=== PATIENT | female | born 1985 | race Caucasian/White ===

== ENCOUNTER 2018-06-19 11:56 | Emergency (ER) | payer BC ==
[2018-06-19] MEDS ORDERED: Acetaminophen/oxyCODONE 325-5 MG Tab PO ONE (12:29)
--- NOTE | 2018-06-19 12:35 | EDM.PDOC ---
ED HPI GENERAL MEDICAL PROBLEM - General Chief Complaint: Back Pain or Injury Stated Complaint: FELL AND HIT RIBS Time Seen by Provider: 06/19/18 12:25 Source of Information: Reports: Patient, Old Records, RN History Limitations: Reports: No Limitations - History of Present Illness INITIAL COMMENTS - FREE TEXT/NARRATIVE: 32 yo female here with R flank pain after a fall onto a hard surface late this morning. Has localized swelling and pain with breathing, no SOB. No gross hematuria. Onset: Today Onset Date: 06/19/18 Onset Time: 10:00 Duration: Hour(s): (2.5), Constant Location: Reports: Chest Quality: Reports: Sharp Severity: Moderate Improves with: Reports: Rest Worsens with: Reports: Movement Context: Reports: Trauma Associated Symptoms: Reports: No Other Symptoms. Denies: Shortness of Breath Treatments SUPERINTENDENT TERMINAL: Reports: Other (see below) (none) Right Chest Pain Score (Numeric/FACES): 6 - Related Data Allergies Allergy/AdvReac Type Severity Reaction Status Date / Time acetaminophen [From Lortab] Allergy Chest Verified 10/04/17 18:46 Tightness bupropion [From Wellbutrin] Allergy Vomiting Verified 10/04/17 18:48 codeine Allergy Chest Verified 10/04/17 18:46 Tightness hydrocodone bitartrate Allergy Chest Verified 10/04/17 18:46 [From Lortab] Tightness hydromorphone HCl Allergy Chest Verified 10/04/17 18:46 [From Dilaudid] Tightness ketorolac [From Toradol] Allergy Headache Verified 10/04/17 18:48 latex Allergy Rash Verified 10/04/17 18:46 nifedipine [From Procardia] Allergy Chest Verified 10/04/17 18:48 Presssure Home Meds: Home Meds Calcium Carbonate [Calcium] 500 mg PO DAILY 04/20/13 [History] Vitamin B Complex 1 each PO DAILY 04/20/13 [History] Zolpidem Tartrate 5 mg PO ASDIRECTED 06/19/18 [History] 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 Denies: Shortness of Breath, Wheezing, Cough, Sputum, Hemoptysis Cardiovascular: Reports: No Symptoms Musculoskeletal: Reports: Other (Rib pain R flank area.) Skin: Reports: No Symptoms, Other (local swelling R flank.) Neurological: Reports: No Symptoms ED EXAM, UPPER BACK/NECK PAIN - Physical Exam Exam: See Below Exam Limited By: No Limitations General Appearance: Alert, WD/WN, No Apparent Distress Neck Exam: Non-Tender Cardiovascular/Respiratory: Regular Rate, Rhythm, Normal Breath Sounds, No Respiratory Distress, Other (Rib pain R flank area. ) Back Exam: Other (local swelling R flank) Extremities: Normal Inspection, Normal Range of Motion, Non-Tender, No Pedal Edema Neurologic: client solutions specialist II-XII nml As Tested, No Motor/Sensory Deficits, Alert, Normal Mood/Affect, Oriented x 3 Psychiatric: Normal Affect, Normal Mood Skin Exam: Normal Color, Warm/Dry Lymphatic: No Adenopathy Course - Vital Signs Last Recorded V/S: Last Vital Signs Temp 35.8 C 06/19/18 12:22 Pulse 102 H 06/19/18 12:22 Resp 16 06/19/18 12:22 BP 115/81 06/19/18 12:22 Pulse Ox 98 06/19/18 12:22 - Orders/Labs/Meds Labs: Laboratory Tests 06/19/18 Range/Units 12:38 Urine Color Yellow Urine Appearance Slightly cloudy Urine pH 5.0 (4.5-8.0) Ur Specific [place] 1.020 (1.008-1.030) Urine Protein 30 H (NEGATIVE) mg/dL Urine Glucose (UA) Normal (NEGATIVE) mg/dL Urine Ketones Negative (NEGATIVE) mg/dL Urine Occult Blood Negative (NEGATIVE) Urine Nitrite Negative (NEGATIVE) Urine Bilirubin Negative (NEGATIVE) Urine Urobilinogen Normal (NORMAL) mg/dL Ur Leukocyte Esterase Negative (NEGATIVE) Urine RBC Not seen (0-5) Urine WBC 0-5 (0-5) Ur Epithelial Cells Moderate Amorphous Sediment Not seen Urine Bacteria Moderate Urine Mucus Many Meds: Medications Discontinued Medications Generic Name Dose Route Start Last Admin Trade Name Freq PRN Reason Stop Dose Admin Oxycodone/Acetaminophen 1 tab 06/19/18 12:29 06/19/18 12:33 Percocet 325-5 Mg PO 06/19/18 12:30 1 tab ONETIME ONE Administration - Radiology Interpretation Free Text/Narrative:: CXR-neg Departure - Departure Time of Disposition: 13:27 Disposition: Home, Self-Care 01 Condition: Fair Clinical Impression: Rib pain on right side - Discharge Information *PRESCRIPTION DRUG MONITORING PROGRAM REVIEWED*: No *COPY OF PRESCRIPTION DRUG MONITORING REPORT IN PATIENT DEE: No Instructions: Chest Wall Pain, [id number] Referrals: Zoila Mendes MD [Primary Care Provider] - Forms: ED Department Discharge Additional Instructions: Take acetaminophen OR Lorimor for pain relief as needed. F/U with your doctor as needed. Activity as tolerated.
--- NOTE | 2018-06-19 13:24 | CRLCR ---
Indication: Chest wall pain after fall Technique: Five views of the ribs. Findings: No pneumothorax or hemothorax. No displaced rib fracture. Normal heart and mediastinum. Visualized lungs are clear. Impression: 1. No displaced rib fracture. 2. No pneumothorax or hemothorax. Dictated by Donta Buckley MD @ Jun 19 2018 1:20PM Signed by Dr. Donta Buckley @ Jun 19 2018 1:22PM
== END 2018-06-19 13:48 | disposition home or self-care (01) ==
LOC: JP.ED 11:56
DX: R07.81 Pleurodynia (principal); F41.9 Anxiety disorder, unspecified; F32.9 Major depressive disorder, single episode, unspecified; Z88.8 Allergy status to other drugs, medicaments and biological substances; Z88.5 Allergy status to narcotic agent; Z91.040 Latex allergy status; Z79.899 Other long term (current) drug therapy
CPT/HCPCS: 71101; 81001; 99284; A9270

== ENCOUNTER 2018-07-29 08:00 | Emergency (ER) | payer BC ==
[2018-07-29] MEDS ORDERED: Ketorolac 60 MG/2 ML SDV IM ONE (08:29)
[2018-07-29] MEDS ORDERED: Cyclobenzaprine 10 MG Tab PO ONE (08:29)
--- NOTE | 2018-07-29 08:32 | EDM.PDOC ---
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 no loss of bowel or bladder no numbness and tingling in the feet Lower Back Pain Score (Numeric/FACES): 8 - Related Data Allergies Allergy/AdvReac Type Severity Reaction Status Date / Time bupropion [From Wellbutrin] Allergy Vomiting Verified 07/29/18 08:16 codeine Allergy Chest Verified 07/29/18 08:16 Tightness hydromorphone HCl Allergy Chest Verified 07/29/18 08:16 [From Dilaudid] Tightness latex Allergy Rash Verified 07/29/18 08:16 nifedipine [From Procardia] Allergy Chest Verified 07/29/18 08:16 Presssure ketorolac [From Toradol] AdvReac Stomach Verified 07/29/18 08:30 Upset Home Meds: Home Meds Calcium Carbonate [Calcium] 500 mg PO DAILY 04/20/13 [History] Vitamin B Complex 1 each PO DAILY 04/20/13 [History] Zolpidem Tartrate 5 mg PO ASDIRECTED 06/19/18 [History] Cyclobenzaprine [Flexeril] 10 mg PO TID PRN #30 tab 07/29/18 [Rx] Hydrocodone/Acetaminophen [Hydrocodon-Acetaminophen 5-325] 1 each PO TID PRN # 10 tablet 07/29/18 [Rx] 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: Musculoskeletal History: Reports: Back Pain, Chronic Other Musculoskeletal History: back fusion Psychiatric History: Reports: Anxiety, Depression - Past Surgical History GI Surgical History: Reports: Bariatric Procedure Neurological Surgical History: Reports: Spinal Fusion Other Neurological Surgeries/Procedures: L-5-s-1 Social & Family History - Family History Family Medical History: Noncontributory - Tobacco Use Smoking Status *Q: Former Smoker Used Tobacco, but Quit: Yes Month/Year Tobacco Last Used: 2010 - Caffeine Use Caffeine Use: Reports: Coffee, Soda, Tea - Recreational Drug Use Recreational Drug Use: No ED ROS GENERAL - Review of Systems Review Of Systems: See Below Musculoskeletal: Reports: Back Pain Neurological: Reports: No Symptoms ED EXAM,LOWER BACK PAIN/INJURY - Physical Exam Exam: See Below Exam Limited By: No Limitations General Appearance: Alert, Mild Distress Respiratory/Chest: No Respiratory Distress Back Exam: Normal Inspection, Decreased Range of Motion, Muscle Spasm, Paraspinal Tenderness. No: CVA Tenderness (R), CVA Tenderness (L), Vertebral Tenderness Extremities: Normal Inspection, Normal Range of Motion, No Pedal Edema Neurological: No: Straight Leg Raise (L), Straight Leg Raise (R) Course - Vital Signs Last Recorded V/S: Last Vital Signs Temp 98.7 F 07/29/18 08:11 Pulse 118 H 07/29/18 09:14 Resp 16 07/29/18 09:14 BP 149/95 H 07/29/18 09:14 Pulse Ox 97 07/29/18 09:14 - Orders/Labs/Meds Meds: Medications Discontinued Medications Generic Name Dose Route Start Last Admin Trade Name Freq PRN Reason Stop Dose Admin Cyclobenzaprine HCl 10 mg 07/29/18 08:29 07/29/18 08:44 Flexeril PO 07/29/18 08:30 10 mg ONETIME ONE Administration Fentanyl 50 mcg 07/29/18 09:45 07/29/18 09:55 Sublimaze IM 07/29/18 09:46 50 mcg ONETIME ONE Administration Ketorolac Tromethamine 60 mg 07/29/18 08:29 07/29/18 08:44 Toradol IM 07/29/18 08:30 60 mg ONETIME ONE Administration Departure - Departure Time of Disposition: 10:29 Disposition: Home, Self-Care 01 Condition: Fair Clinical Impression: Low back pain Qualifiers: Chronicity: acute Back pain laterality: right Sciatica presence: without sciatica Qualified Code(s): M54.5 - Low back pain - Discharge Information Prescriptions: Cyclobenzaprine [Flexeril] 10 mg PO TID PRN #30 tab PRN Reason: Pain Hydrocodone/Acetaminophen [Hydrocodon-Acetaminophen 5-325] 1 each PO TID PRN # 10 tablet PRN Reason: Pain Instructions: Acute Back Pain, Adult Referrals: Zoila Mendes MD [Primary Care Provider] - Forms: ED Department Discharge, ED Return to Work/School Form Additional Instructions: Use Tylenol as needed for pain control, use hydrocodone as needed for breakthrough pain, use Flexeril as needed for muscle relaxant, Please followup with your primary care provider in 3-5 days if not better, please call return to the emergency department with worsening of symptoms. Your medications have been faxed to [facility] - Assessment/Plan Plan: Assessment Acuity = acute Site and laterality = low back pain Etiology = secondary lifting injury Manifestations = none Location of injury = Home Lab values = none Plan She good relief combination Toradol and Flexeril with 50 mics of fentanyl in the emergency Department discharge home with Flexeril 10 mg by mouth 3 times a day when necessary total #30 also hydrocodone 5/325 one tab by mouth 3 times a day when necessary total #10 medications faxed to [facility] follow -up primary care 3-5 days if no improvement This note was dictated using [employer] voice recognition software please call with any questions on syntax or grammar.
[2018-07-29] MEDS ORDERED: fentaNYL 100 MCG/2 ML SDV IM ONE (09:45)
== END 2018-07-29 10:46 | disposition home or self-care (01) ==
LOC: JP.ED 08:00
DX: M54.5 Low back pain (principal); F41.9 Anxiety disorder, unspecified; F32.9 Major depressive disorder, single episode, unspecified; Z87.891 Personal history of nicotine dependence; Z88.5 Allergy status to narcotic agent; Z88.8 Allergy status to other drugs, medicaments and biological substances; Z91.040 Latex allergy status; Z79.899 Other long term (current) drug therapy
CPT/HCPCS: 96372; 99283; A9270; J1885; J3010

== ENCOUNTER 2018-09-30 07:45 | Inpatient (IN) | payer BC ==
[2018-09-30] MEDS ORDERED: Morphine 2 MG/ML Syringe IVPUSH ONE ×3 (08:11→10:10)
[2018-09-30] MEDS ORDERED: Ondansetron 4 MG/2 ML SDV IVPUSH ONE ×2 (08:11→15:50)
[2018-09-30] MEDS ORDERED: Sodium Chloride 0.9% 1,000 ML IV SCH (08:15)
--- NOTE | 2018-09-30 08:37 | EDM.PDOC ---
ED HPI GENERAL MEDICAL PROBLEM - General Chief Complaint: Abdominal Pain Stated Complaint: SEVERE RT SIDED ABD PAIN Time Seen by Provider: 09/30/18 08:25 Source of Information: Reports: Patient History Limitations: Reports: No Limitations - History of Present Illness INITIAL COMMENTS - FREE TEXT/NARRATIVE: pt has pain in the rt upper abdoman and rt flank area. She has no history of a kidney stone. She has had a bhavik. This pain started about 8 am. Onset: Other (last evening and it did start suddenly. ) Duration: Hour(s): Location: Reports: Abdomen Associated Symptoms: Reports: Loss of Appetite, Nausea/Vomiting, Other (pt had a very large loose stool this am. ) Right Abdominal Pain Score (Numeric/FACES): 8 - Related Data Allergies Allergy/AdvReac Type Severity Reaction Status Date / Time bupropion [From Wellbutrin] Allergy Vomiting Verified 07/29/18 08:16 codeine Allergy Chest Verified 07/29/18 08:16 Tightness hydromorphone HCl Allergy Chest Verified 07/29/18 08:16 [From Dilaudid] Tightness latex Allergy Rash Verified 07/29/18 08:16 nifedipine [From Procardia] Allergy Chest Verified 07/29/18 08:16 Presssure ketorolac [From Toradol] AdvReac Stomach Verified 07/29/18 08:30 Upset Home Meds: Home Meds Calcium Carbonate [Calcium] 500 mg PO DAILY 04/20/13 [History] Vitamin B Complex 1 each PO DAILY 04/20/13 [History] Zolpidem Tartrate 5 mg PO ASDIRECTED 06/19/18 [History] Cyclobenzaprine [Flexeril] 10 mg PO TID PRN #30 tab 07/29/18 [Rx] Hydrocodone/Acetaminophen [Hydrocodon-Acetaminophen 5-325] 1 each PO TID PRN # 10 tablet 07/29/18 [Rx] Past Medical History Gastrointestinal History: Reports: Other (See Below) Other Gastrointestinal History: R sided abd pain for past 24 hours 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 History: Reports: Musculoskeletal History: Reports: Back Pain, Chronic Other Musculoskeletal History: back fusion Psychiatric History: Reports: Anxiety, Depression - Past Surgical History GI Surgical History: Reports: Bariatric Procedure Neurological Surgical History: Reports: Spinal Fusion Other Neurological Surgeries/Procedures: L-5-s-1 Social & Family History - Family History Family Medical History: Noncontributory - Tobacco Use Smoking Status *Q: Never Smoker - Caffeine Use Caffeine Use: Reports: Coffee - Alcohol Use Days Per Week of Alcohol Use: 1 Number of Drinks Per Day: 3 Total Drinks Per Week: 3 - Recreational Drug Use Recreational Drug Use: No ED ROS GENERAL - Review of Systems Review Of Systems: See Below Constitutional: Reports: No Symptoms HEENT: Reports: No Symptoms Respiratory: Reports: No Symptoms Cardiovascular: Reports: No Symptoms Endocrine: Reports: No Symptoms GI/Abdominal: Reports: Abdominal Pain, Diarrhea, Other (pt had one very massive loose stool this am. ) : Reports: No Symptoms Musculoskeletal: Reports: No Symptoms Skin: Reports: No Symptoms ED EXAM, GI/ABD - Physical Exam Exam: See Below Text/Narrative:: pt arrived havin severe rt sided abdomanal pain radiating to her back. She states this started very suddenly at 8 pm last nite. She is having some loose stools. Exam Limited By: No Limitations General Appearance: Alert, Severe Distress, Other (pupils equal and reactive. ) Ears: Normal TMs Nose: Normal Inspection, Nasal Deformity Throat/Mouth: Normal Inspection Head: Atraumatic Neck: Normal Inspection Respiratory/Chest: No Respiratory Distress Cardiovascular: Regular Rate, Rhythm GI/Abdominal Exam: Tender, Other (mid to lower abdoman. ) (Female) Exam: Deferred Rectal (Female) Exam: Deferred Back Exam: Normal Inspection Extremities: Normal Inspection Neurological: Alert, Oriented, Normal Cognition Course - Vital Signs Last Recorded V/S: Last Vital Signs Temp 36.9 C 10/01/18 04:00 Pulse 75 10/01/18 06:00 Resp 17 10/01/18 06:00 BP 138/86 10/01/18 06:00 Pulse Ox 95 10/01/18 06:00 - Orders/Labs/Meds Orders: Active Orders 24 hr Category Date Time Status Lidocaine 0.4%/D5W [Lidocaine 2 GM/D5W 500 ML] Med 09/30/18 15:00 Active 2 gm in 500 ml IV 1 mg/min Morphine PF [Morphine REGIONAL BRANCH MANAGER 150 MG in 30 ML] Med 09/30/18 11:03 Active 0 mg IV ASDIRECTED PRN Naloxone [Narcan] Med 09/30/18 11:03 Active 0.1 mg IV ASDIRECTED PRN Medication Orders Acetaminophen (Tylenol) 650 mg PO Q6H [facility] Last Admin: 10/01/18 01:43 Dose: 650 mg Admin: 09/30/18 20:37 Dose: 650 mg Cyanocobalamin (Vitamin B12) 1,000 mcg IM ONETIME ONE Stop: 10/02/18 09:01 Cyclobenzaprine HCl (Flexeril) 10 mg PO TID PRN PRN Reason: MUSCLE SPASM Diphenhydramine HCl (Benadryl) 50 mg IVPUSH Q4H PRN PRN Reason: ITCHING Heparin Sodium (Porcine) (Heparin Sodium) 5,000 units SUBCUT Q12H [facility] Last Admin: 09/30/18 20:38 Dose: 5,000 units Hydroxyzine HCl (Vistaril) 100 mg IM Q4H PRN PRN Reason: pain Last Admin: 09/30/18 20:38 Dose: 100 mg Lidocaine HCl/Dextrose (Lidocaine 2 Gm/D5w 500 Ml) 2 gm in 500 mls @ 15 mls/hr IV .Q24H [facility] Last Admin: 09/30/18 17:37 Dose: 1 mg/min, 15 mls/hr Dextrose/Lactated Ringer's (Dextrose 5%-Lactated Ringers) 1,000 mls @ 175.004 mls/hr IV ASDIRECTED [facility] Last Admin: 10/01/18 07:08 Dose: 175.004 mls/hr Infusion: 10/01/18 06:13 Dose: 175.004 mls/hr Admin: 10/01/18 00:30 Dose: 175.004 mls/hr Multivitamins/Minerals 10 ml/Thiamine HCl 200 mg/ Chromium/Copper/Manganese/ Seleni/Zn 1 ml/ Dextrose/Lactated Ringer's 1,013 mls @ 174.999 mls/hr IV DAILY@ 1600 [facility] Last Admin: 09/30/18 18:00 Dose: 174.999 mls/hr Cefoxitin Sodium 2 gm/ Sodium (Chloride) 50 mls @ 100 mls/hr IV Q6H [facility] Stop: 10/01/18 08:29 Last Admin: 10/01/18 01:43 Dose: 100 mls/hr Admin: 09/30/18 20:37 Dose: 100 mls/hr Ferric Sodium Gluconate Complex 250 mg/ Sodium Chloride 120 mls @ 60 mls/hr IV Q24H [facility] Stop: 10/02/18 11:59 Labetalol HCl (Normodyne) 5 mg IVPUSH Q5M PRN PRN Reason: SBP over 160 OR DBP over 95 Metoclopramide HCl (Reglan) 10 mg IVPUSH Q6H PRN PRN Reason: NAUSEA NOT CONTROL BY ZOFRAN Last Admin: 09/30/18 17:42 Dose: 10 mg Miscellaneous Information (Remove Patch) 1 ea TRDERM ONETIME ONE Stop: 10/02/18 10:01 Morphine Sulfate (Morphine Geologist Petroleum 150 Mg In 30 Ml) 0 mg IV ASDIRECTED PRN; Protocol PRN Reason: Pain Last Admin: 09/30/18 11:28 Dose: 150 mg Naloxone HCl (Narcan) 0.1 mg IV ASDIRECTED PRN PRN Reason: decreased respiratory rate Scopolamine Patch (Check) 1 each TOP DAILY ISABELA Stop: 10/02/18 17:03 Ondansetron HCl (Zofran) 4 mg IVPUSH Q4H PRN PRN Reason: Nausea/Vomiting Pantoprazole Sodium (Protonix Iv) 40 mg IVPUSH Q24H [facility] Last Admin: 09/30/18 20:38 Dose: 40 mg Labs: Laboratory Tests 09/30/18 09/30/18 09/30/18 Range/Units 08:20 08:20 08:20 WBC 8.4 (4.5-11.0) K/uL RBC 4.54 (3.30-5.50) M/uL Hgb 11.6 L (12.0-15.0) g/dL Hct 37.5 (36.0-48.0) % MCV 83 (80-98) fL MCH 26 L (27-31) pg MCHC 31 L (32-36) % Plt Count 379 (150-400) K/uL Neut % (Auto) 61 (36-66) % Lymph % (Auto) 26 (24-44) % [place] % (Auto) 10 H (2-6) % Eos % (Auto) 3 (2-4) % Baso % (Auto) 0 (0-1) % Sodium 140 (140-148) mmol/L Potassium 4.2 (3.6-5.2) mmol/L Chloride 104 (100-108) mmol/L Carbon Dioxide 28 (21-32) mmol/L Anion Gap 7.6 (5.0-14.0) mmol/L BUN 19 H (7-18) mg/dL Creatinine 0.7 (0.6-1.0) mg/dL Est Cr Clr Drug Dosing TNP Estimated GFR (MDRD) > 60 (>60) Glucose 93 (74-106) mg/dL Calcium 8.4 L (8.5-10.1) mg/dL Total Bilirubin 0.4 (0.2-1.0) mg/dL Ferritin (8-388) ng/ml AST 21 (15-37) U/L ALT 25 (12-78) U/L Alkaline Phosphatase 75 (46-116) U/L C-Reactive Protein 0.07 (0.0-0.3) mg/dL Total Protein 6.5 (6.4-8.2) g/dL Albumin 3.4 (3.4-5.0) g/dL Globulin 3.1 (2.3-3.5) g/dL Albumin/Globulin Ratio 1.1 L (1.2-2.2) Lipase 117 (73-393) U/L Vitamin B12 (193-986) pg/ml Folate (8.6-58.9) ng/ml Urine Color Urine Appearance Urine pH (4.5-8.0) Ur Specific [place] (1.008-1.030) Urine Protein (NEGATIVE) mg/dL Urine Glucose (UA) (NEGATIVE) mg/dL Urine Ketones (NEGATIVE) mg/dL Urine Occult Blood (NEGATIVE) Urine Nitrite (NEGATIVE) Urine Bilirubin (NEGATIVE) Urine Urobilinogen (NORMAL) mg/dL Ur Leukocyte Esterase (NEGATIVE) Urine RBC (0-5) Urine WBC (0-5) Ur Epithelial Cells Amorphous Sediment Urine Bacteria Urine Mucus 09/30/18 09/30/18 09/30/18 Range/Units 08:42 12:30 12:35 WBC (4.5-11.0) K/uL RBC (3.30-5.50) M/uL Hgb (12.0-15.0) g/dL Hct (36.0-48.0) % MCV (80-98) fL MCH (27-31) pg MCHC (32-36) % Plt Count (150-400) K/uL Neut % (Auto) (36-66) % Lymph % (Auto) (24-44) % [place] % (Auto) (2-6) % Eos % (Auto) (2-4) % Baso % (Auto) (0-1) % Sodium (140-148) mmol/L Potassium (3.6-5.2) mmol/L Chloride (100-108) mmol/L Carbon Dioxide (21-32) mmol/L Anion Gap (5.0-14.0) mmol/L BUN (7-18) mg/dL Creatinine (0.6-1.0) mg/dL Est Cr Clr Drug Dosing Estimated GFR (MDRD) (>60) Glucose (74-106) mg/dL Calcium (8.5-10.1) mg/dL Total Bilirubin (0.2-1.0) mg/dL Ferritin 5 L (8-388) ng/ml AST (15-37) U/L ALT (12-78) U/L Alkaline Phosphatase (46-116) U/L C-Reactive Protein (0.0-0.3) mg/dL Total Protein (6.4-8.2) g/dL Albumin (3.4-5.0) g/dL Globulin (2.3-3.5) g/dL Albumin/Globulin Ratio (1.2-2.2) Lipase (73-393) U/L Vitamin B12 1095 H (193-986) pg/ml Folate 24.4 (8.6-58.9) ng/ml Urine Color Yellow Urine Appearance Slightly cloudy Urine pH 7.0 (4.5-8.0) Ur Specific [place] 1.015 (1.008-1.030) Urine Protein Negative (NEGATIVE) mg/dL Urine Glucose (UA) Normal (NEGATIVE) mg/dL Urine Ketones Negative (NEGATIVE) mg/dL Urine Occult Blood Negative (NEGATIVE) Urine Nitrite Negative (NEGATIVE) Urine Bilirubin Moderate (NEGATIVE) Urine Urobilinogen 1 (NORMAL) mg/dL Ur Leukocyte Esterase Trace (NEGATIVE) Urine RBC 0-5 (0-5) Urine WBC 0-5 (0-5) Ur Epithelial Cells Rare Amorphous Sediment Not seen Urine Bacteria Few Urine Mucus Not seen Meds: Medications Generic Name Dose Route Start Last Admin Trade Name Freq PRN Reason Stop Dose Admin Acetaminophen 650 mg 09/30/18 20:00 10/01/18 01:43 Tylenol PO 650 mg Q6H ISABELA Administration Cyanocobalamin 1,000 mcg 10/02/18 09:00 Vitamin B12 IM 10/02/18 09:01 ONETIME ONE Cyclobenzaprine HCl 10 mg 09/30/18 17:08 Flexeril PO TID PRN MUSCLE SPASM Diphenhydramine HCl 50 mg 09/30/18 17:02 Benadryl IVPUSH Q4H PRN ITCHING Heparin Sodium (Porcine) 5,000 units 09/30/18 20:00 09/30/18 20:38 Heparin Sodium SUBCUT 5,000 units Q12H ISABELA Administration Hydroxyzine HCl 100 mg 09/30/18 17:02 09/30/18 20:38 Vistaril IM 100 mg Q4H PRN Administration pain Lidocaine HCl/Dextrose 2 gm in 500 mls @ 15 mls/hr 09/30/18 15:00 09/30/18 17 :37 Lidocaine 2 Gm/D5w 500 Ml IV 1 mg/min .Q24H ISABELA 15 mls/hr Administration 1 MG/MIN Dextrose/Lactated Ringer's 1,000 mls @ 175.004 mls/hr 09/30/18 17:15 07:08 Dextrose 5%-Lactated Ringers IV 175.004 mls/hr ASDIRECTED ISABELA Administration Multivitamins/Minerals 10 ml/ 1,013 mls @ 174.999 mls/hr 09/30/18 18:00 09/30 18:00 Thiamine HCl 200 mg/ Chromium/ IV 174.999 mls/hr Copper/Manganese/Seleni/Zn 1 DAILY@1600 ISABELA Administration ml/ Dextrose/Lactated Ringer's Cefoxitin Sodium 2 gm/ Sodium 50 mls @ 100 mls/hr 09/30/18 20:00 10/01/18 01: 43 Chloride IV 10/01/18 08:29 100 mls/hr Q6H ISABELA Administration Ferric Sodium Gluconate 120 mls @ 60 mls/hr 10/01/18 10:00 Complex 250 mg/ Sodium IV 10/02/18 11:59 Chloride Q24H ISABELA Labetalol HCl 5 mg 09/30/18 17:02 Normodyne IVPUSH Q5M PRN SBP over 160 OR DBP over 95 Metoclopramide HCl 10 mg 09/30/18 17:02 09/30/18 17:42 Reglan IVPUSH 10 mg Q6H PRN Administration NAUSEA NOT CONTROL BY ZOFRAN Miscellaneous Information 1 ea 10/02/18 10:00 Remove Patch TRDERM 10/02/18 10:01 ONETIME ONE Morphine Sulfate 0 mg 09/30/18 11:03 09/30/18 11:28 Morphine Geologist Petroleum 150 Mg In 30 Ml IV 150 mg ASDIRECTED PRN Administration Pain Protocol Naloxone HCl 0.1 mg 09/30/18 11:03 Narcan IV ASDIRECTED PRN decreased respiratory rate Scopolamine Patch 1 each 09/30/18 17:02 Check TOP 10/02/18 17:03 DAILY ISABELA Ondansetron HCl 4 mg 09/30/18 17:02 Zofran IVPUSH Q4H PRN Nausea/Vomiting Pantoprazole Sodium 40 mg 09/30/18 20:00 09/30/18 20:38 Protonix Iv IVPUSH 40 mg Q24H ISABELA Administration Discontinued Medications Generic Name Dose Route Start Last Admin Trade Name Freq PRN Reason Stop Dose Admin Bupivacaine HCl Confirm 09/30/18 14:46 09/30/18 15:05 Marcaine 0.5% Administered 09/30/18 14:47 25 ml Dose Administration 50 ml .ROUTE .STK-MED ONE Ropivacaine 37 ml/ 0 ml 09/30/18 15:00 09/30/18 15:07 Dexamethasone 8 mg/ NERVRT 80 syringe Epinephrine HCl 0.4 mg/ Sodium ASDIRECTED ISABELA Administration Chloride 40.6 ml Dexamethasone Confirm 09/30/18 11:21 Dexamethasone Administered 09/30/18 11:22 Dose 4 mg .ROUTE .STK-MED ONE Fentanyl Confirm 09/30/18 11:21 Sublimaze Administered 09/30/18 11:22 Dose 250 mcg .ROUTE .STK-MED ONE Glycopyrrolate Confirm 09/30/18 11:21 Robinul Administered 09/30/18 11:22 Dose 1 mg .ROUTE .STK-MED ONE Hydroxyzine HCl 50 mg 09/30/18 15:41 09/30/18 15:51 Vistaril IM 09/30/18 15:42 50 mg ONETIME ONE Administration Sodium Chloride 1,000 mls @ 999 mls/hr 09/30/18 08:15 09/30/18 08:28 Normal Saline IV 999 mls/hr ASDIRECTED ISABELA Administration Sodium Chloride 80 mls @ 3 mls/sec 09/30/18 09:06 09/30/18 09:25 Normal Saline IV 09/30/18 09:07 3 mls/sec ONETIME ONE Administration Dextrose/Lactated Ringer's 1,000 mls @ 125 mls/hr 09/30/18 11:15 09/30/18 11: 27 Dextrose 5%-Lactated Ringers IV 125 mls/hr ASDIRECTED ISABELA Administration Ketamine HCl 50 mg/ Sodium 50 mls @ 19.2 mls/hr 09/30/18 15:00 Chloride IV ASDIRECTED ISABELA 5 MCG/KG/MIN Cefoxitin Sodium 2 gm/ Sodium 50 mls @ 100 mls/hr 09/30/18 14:30 09/30/18 14: 05 Chloride IV 09/30/18 14:59 100 mls/hr ONCALL ONE Administration Iopamidol 100 ml 09/30/18 09:15 09/30/18 09:25 Isovue-300 (61%) IV 09/30/18 12:00 100 ml . DIRECTED ISABELA Administration Iopamidol 50 ml 10/01/18 05:00 10/01/18 05:13 Isovue-300 (61%) PO 10/01/18 05:01 50 ml ASDIRECTED STA Administration Ketamine HCl 30 mg 09/30/18 15:00 Ketalar IV ASDIRECTED ISABELA Lidocaine HCl 100 mg 09/30/18 15:00 Xylocaine 2% IVPUSH ASDIRECTED ISABELA Lidocaine/Epinephrine Confirm 09/30/18 14:46 09/30/18 15:06 Xylocaine 1% With Epinephrine 1:100,000 Administered 09/30/18 14:47 25 ml Dose Administration 50 ml .ROUTE .STK-MED ONE Meropenem Confirm 09/30/18 14:47 09/30/18 15:06 Merrem Administered 09/30/18 14:48 500 mg Dose Administration 500 mg .ROUTE .STK-MED ONE Morphine Sulfate 2 mg 09/30/18 08:11 09/30/18 08:25 Morphine IVPUSH 09/30/18 08:12 2 mg ONETIME ONE Administration Morphine Sulfate 2 mg 09/30/18 08:47 09/30/18 09:05 Morphine IVPUSH 09/30/18 08:48 2 mg ONETIME ONE Administration Morphine Sulfate 2 mg 09/30/18 10:10 09/30/18 10:15 Morphine IVPUSH 09/30/18 10:11 2 mg ONETIME ONE Administration Neostigmine Methylsulfate Confirm 09/30/18 11:21 Neostigmine Administered 09/30/18 11:22 Dose 5 mg .ROUTE .STK-MED ONE Ondansetron HCl 4 mg 09/30/18 08:11 09/30/18 08:25 Zofran IVPUSH 09/30/18 08:12 4 mg ONETIME ONE Administration Ondansetron HCl Confirm 09/30/18 11:21 Zofran Administered 09/30/18 11:22 Dose 4 mg .ROUTE .STK-MED ONE Ondansetron HCl 4 mg 09/30/18 15:50 09/30/18 15:59 Zofran IVPUSH 09/30/18 15:51 4 mg ONETIME ONE Administration Propofol Confirm 09/30/18 11:21 Diprivan 20 Ml Administered 09/30/18 11:22 Dose 200 mg .ROUTE .STK-MED ONE Rocuronium [place] Confirm 09/30/18 11:21 Zemuron Administered 09/30/18 11:22 Dose 50 mg .ROUTE .STK-MED ONE Sodium Chloride 10 ml 09/30/18 09:06 09/30/18 09:25 Saline Flush FLUSH 09/30/18 09:07 10 ml ONETIME ONE Administration Succinylcholine Chloride Confirm 09/30/18 11:21 Quelicin Administered 09/30/18 11:22 Dose 200 mg .ROUTE .STK-MED ONE - Re-Assessments/Exams Free Text/Narrative Re-Assessment/Exam: 09/30/18 10:43 pt had a cat scan whixh showed inflamation around the appendix area. Pt describes this coming on acutely and her pain has been very severe. She has a normal wbc. Her crp is low. Her liver enzymes are normal. 09/30/18 10:44 09/30/18 10:52 Dr Nava consulted on the pt and felt she might have a post RNY volus. Departure - Departure Time of Disposition: 10:56 Disposition: Admitted As Inpatient 66 Condition: Fair Clinical Impression: Abdominal pain, Appendicitis - Discharge Information
[2018-09-30] MEDS ORDERED: Sodium Chloride 0.9% 80 ML IV ONE (09:06)
[2018-09-30] MEDS ORDERED: Sodium Chloride 0.9% 10 ML Syringe FLUSH ONE (09:06)
[2018-09-30] MEDS ORDERED: Iopamidol 612 MG/ML 100 ML Bottle IV SCH (09:15)
--- NOTE | 2018-09-30 10:14 | CRLCT ---
INDICATION: Right lower abdominal pain. TECHNIQUE: CT of the abdomen and pelvis with contrast. 100 cc of IV Isovue-300 was administered. COMPARISON: None. FINDINGS: Imaged lung bases are clear. Status post cholecystectomy. Gastric bypass changes are noted. The liver, spleen, pancreas, adrenal glands and kidneys are unremarkable. Urinary bladder is unremarkable. Uterus is present, with endometrial fluid. No free fluid or free air. No lymphadenopathy in the abdomen or pelvis. Abdominal aorta is normal in caliber. No evidence of bowel obstruction. Mild periappendiceal fat stranding which could be due to early appendicitis (series 2, image 79). No evidence of abscess or perforation. L5-S1 fusion with interbody fusion and screws. Bilateral pars defects at L5-S1. IMPRESSION: Mild periappendiceal fat stranding which could be due to early appendicitis. No evidence of abscess or perforation. Please note that all CT scans at this facility use dose modulation, iterative reconstruction, and/or weight-based dosing when appropriate to reduce radiation dose to as low as reasonably achievable. Dictated by Edwin Ponce MD @ Sep 30 2018 10:01AM Signed by Dr. Edwin Ponce @ Sep 30 2018 10:14AM
[2018-09-30] MEDS ORDERED: Morphine PF 150 MG/30 ML PCA Syringe IV PRN (11:03)
[2018-09-30] MEDS ORDERED: Naloxone 0.4 MG/ML SDV IV PRN (11:03)
[2018-09-30] MEDS ORDERED: Dextrose 5%-Lactated Ringers 1,000 ML IV SCH (11:15)
[2018-09-30] MEDS ORDERED: Succinylcholine 200 MG/10 ML MDV ONE (11:21)
[2018-09-30] MEDS ORDERED: Propofol 200 MG/20 ML SDV ONE (11:21)
[2018-09-30] MEDS ORDERED: Glycopyrrolate 0.2 MG/ML 5 ML MDV ONE (11:21)
[2018-09-30] MEDS ORDERED: fentaNYL 250 MCG/5 ML SDV ONE (11:21)
[2018-09-30] MEDS ORDERED: Neostigmine Methylsulfate 1 MG/ML 5 ML Syringe ONE (11:21)
[2018-09-30] MEDS ORDERED: Ondansetron 4 MG/2 ML SDV ONE (11:21)
[2018-09-30] MEDS ORDERED: Dexamethasone 4 MG/ML SDV ONE (11:21)
[2018-09-30] MEDS ORDERED: Rocuronium 50 MG/5 ML Vial ONE (11:21)
[2018-09-30] MEDS ORDERED: cefOXitin 2 GM in Sodium Chloride 0.9% 50 ML IV ONE (14:30)
[2018-09-30] MEDS ORDERED: Bupivacaine 0.5% 50 ML MDV ONE (14:46)
[2018-09-30] MEDS ORDERED: Lidocaine 1% with EPINEPHrine 1:100,000 50 ML MDV ONE (14:46)
[2018-09-30] MEDS ORDERED: Meropenem 500 MG SDV ONE (14:47)
[2018-09-30] MEDS ORDERED: Ketamine 50 MG in Sodium Chloride 0.9% 49.5 ML IV SCH (15:00)
[2018-09-30] MEDS ORDERED: Lidocaine 0.4%/D5W 2 GM/500 ML BAG IV SCH (15:00)
[2018-09-30] MEDS ORDERED: Ketamine 500 MG/5 ML MDV IV SCH (15:00)
[2018-09-30] MEDS ORDERED: Lidocaine 2% 100 MG/5 ML Syringe IVPUSH SCH (15:00)
[2018-09-30] MEDS ORDERED: hydrOXYzine HCl 100 MG/2 ML SDV IM ONE (15:41)
[2018-09-30] MEDS ORDERED: Ondansetron 4 MG/2 ML SDV IVPUSH PRN (17:02)
[2018-09-30] MEDS ORDERED: Labetalol 20 MG/4 ML Syringe IVPUSH PRN (17:02)
[2018-09-30] MEDS: Metoclopramide 10 MG/2 ML SDV IVPUSH PRN (17:42)
[2018-09-30] MEDS ORDERED: MVI, Adult with Vitamin K 10 ML, Thiamine 200 MG, Chromium/Copper/Mang/Selen/Zn 1 ML in... IV SCH ×4 (18:00)
[2018-09-30] MEDS: Acetaminophen 325 MG Tab PO SCH (20:37)
[2018-09-30] MEDS: cefOXitin 2 GM in Sodium Chloride 0.9% 50 ML IV SCH (20:37)
[2018-09-30] MEDS: hydrOXYzine HCl 100 MG/2 ML SDV IM PRN (20:38)
[2018-09-30] MEDS: Pantoprazole 40 MG Vial IVPUSH SCH (20:38)
[2018-09-30] MEDS: Heparin Sodium 5,000 Units/ML Vial SUBCUT SCH (20:38)
[2018-10-01] MEDS: Dextrose 5%-Lactated Ringers 1,000 ML IV SCH ×2 (00:30→07:08)
[2018-10-01] MEDS: cefOXitin 2 GM in Sodium Chloride 0.9% 50 ML IV SCH ×2 (01:43→08:39)
[2018-10-01] MEDS: Acetaminophen 325 MG Tab PO SCH (01:43)
[2018-10-01] MEDS ORDERED: Iopamidol 612 MG/ML 50 ML SDV PO STA (05:00)
--- NOTE | 2018-10-01 05:40 | CRLCR ---
INDICATION: RELEASE OF SBO HX RNY PRELIMINARY IMPRESSIONS: 1. No evidence of contrast extravasation is noted on 2 static submitted images. Agree with preliminary reading. Small bowel obstruction pattern or ileus is demonstrated in the central abdomen. No other additional findings. Dictated by: Abdullahi Valentino MD @ 10/02/2018 11:28:42 (Electronically Signed)
[2018-10-01] MEDS ORDERED: Dextrose 5%-Lactated Ringers 1,000 ML IV SCH (08:15)
[2018-10-01] MEDS: Heparin Sodium 5,000 Units/ML Vial SUBCUT SCH ×2 (08:40→20:51)
[2018-10-01] MEDS: Docusate Sodium 100 MG Cap PO SCH ×2 (08:43→20:51)
[2018-10-01] MEDS: Acetaminophen 500 MG Tab PO SCH ×3 (08:43→20:51)
[2018-10-01] MEDS: SCOPOLAMINE PATCH CHECK TOP SCH (08:44)
[2018-10-01] MEDS: Sodium Ferric Gluconate Cmplex 250 MG in Sodium Chloride 0.9% 100 ML IV SCH (10:57)
[2018-10-01] MEDS: Metoclopramide 10 MG/2 ML SDV IVPUSH PRN ×2 (14:58→21:00)
[2018-10-01] MEDS ORDERED: MVI, Adult with Vitamin K 10 ML, Thiamine 200 MG, Chromium/Copper/Mang/Selen/Zn 1 ML in... IV SCH ×4 (16:00)
[2018-10-01] MEDS: Pantoprazole 40 MG Vial IVPUSH SCH (20:51)
[2018-10-02] MEDS: Acetaminophen 500 MG Tab PO SCH ×4 (01:49→21:17)
[2018-10-02] MEDS: Metoclopramide 10 MG/2 ML SDV IVPUSH PRN ×3 (05:11→18:26)
[2018-10-02] MEDS ORDERED: Ondansetron 4 MG Tab.DIS PO PRN ×2 (06:26→08:15)
[2018-10-02] MEDS: Heparin Sodium 5,000 Units/ML Vial SUBCUT SCH ×2 (07:52→21:18)
[2018-10-02] MEDS: SCOPOLAMINE PATCH CHECK TOP SCH (08:23)
[2018-10-02] MEDS: oxyCODONE 5 MG Tab PO PRN ×4 (08:27→22:42)
[2018-10-02] MEDS: Docusate Sodium 100 MG Cap PO SCH ×2 (08:28→21:18)
[2018-10-02] MEDS ORDERED: Cyanocobalamin (Vitamin B12) 1,000 MCG/ML SDV IM ONE (09:00)
--- NOTE | 2018-10-02 09:09 | PN ---
DATE OF SERVICE: 10/02/2018 SUBJECTIVE: Angelica is postoperative day 2. Vital signs have been stable. Her pain has been controlled. She is not passing any flatus yet, up ambulating. Oral intake 600 and urine output is 4450. REVIEW OF SYSTEMS: Remainder of review of systems negative for any pertinent positives and negatives. OBJECTIVE: GENERAL: Angelica Almazan is a 32-year-old female. She is alert and orientated. VITAL SIGNS: TPR 96.4, 75, 16, and blood pressure 129/78. HEENT: Negative. NECK: Supple. HEART: Regular rate and rhythm. LUNGS: Clear to auscultation in all 4 latif. ABDOMEN: Dressings dry and intact. Abdominal binder is on. EXTREMITIES: Without peripheral edema. ASSESSMENT: Exploratory laparotomy with release of small bowel resection and appendectomy. Date of surgery 09/30/2018. Surgeon, Jv Nava MD. PLAN: 1. Discontinue SYSTEM ANALYST and continuous pulse ox. 2. Saline lock IV, Zofran 4 mg ODT every 4 hours p.r.n. nausea, and oxycodone 5 mg q.6 hours p.r.n. pain. 3. Good pulmonary toilet. 4. We will evaluate p.r.n. or in a.m. Jannette Vazquez PA-C /[id number]
[2018-10-02] MEDS: Cyclobenzaprine 10 MG Tab PO PRN ×2 (09:53→21:20)
[2018-10-02] MEDS: Sodium Ferric Gluconate Cmplex 250 MG in Sodium Chloride 0.9% 100 ML IV SCH (09:55)
[2018-10-02] MEDS: hydrOXYzine HCl 100 MG/2 ML SDV IM PRN (14:10)
[2018-10-02] MEDS: Pantoprazole 40 MG Vial IVPUSH SCH (21:17)
[2018-10-03] MEDS: Metoclopramide 10 MG/2 ML SDV IVPUSH PRN ×2 (01:30→12:52)
[2018-10-03] MEDS: Acetaminophen 500 MG Tab PO SCH ×4 (02:28→20:14)
[2018-10-03] MEDS: hydrOXYzine HCl 100 MG/2 ML SDV IM PRN (02:35)
[2018-10-03] MEDS: oxyCODONE 5 MG Tab PO PRN ×5 (02:41→20:13)
[2018-10-03] MEDS: Heparin Sodium 5,000 Units/ML Vial SUBCUT SCH ×2 (07:25→20:14)
[2018-10-03] MEDS ORDERED: Magnesium Hydroxide 400 MG/5 ML Susp 30 ML Cup PO ONE (08:00)
--- NOTE | 2018-10-03 08:12 | PN ---
DATE OF SERVICE: 10/03/2018 SUBJECTIVE: Angelica's vital signs have been stable. Her pain has been well managed. Oral intake 600 mL and urine output 2950. She states she is not hungry, passing flatus, pain is controlled and afebrile. REVIEW OF SYSTEMS: Remainder of review of systems negative for any pertinent positives and negatives. OBJECTIVE: GENERAL: Angelica Almazan is a pleasant 32-year-old female. VITAL SIGNS: TPR is 98.2, 79, 16, and blood pressure 126/73. HEENT: Negative. NECK: Supple. HEART: Regular rate and rhythm. LUNGS: Clear. ABDOMEN: Dressing dry and intact. Aquacel is on. Abdominal binder is on. EXTREMITIES: Without peripheral edema. ASSESSMENT: Exploratory laparotomy with lysis of adhesions: A. Reduction of small bowel volvulus and closure of internal hernia. B. Small-bowel resection. C. Placement of Interceed mesh. D. Appendectomy. Postoperative diagnoses: 1. Partial small bowel obstruction secondary to volvulus. 2. 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 3. Extensive intraabdominal adhesions. 4. Distended inflamed appendix. Date of surgery 09/30/2018. Surgeon, Jv Nava MD. PLAN: 1. Milk of magnesia 30 mL now, followed by Dulcolax 2 tablets in 1 hour. 2. Good pulmonary toilet. 3. Increase liquids. 4. Follow up p.r.n. or in a.m. Jannette Vazquez PA-C /[id number]
[2018-10-03] MEDS: Docusate Sodium 100 MG Cap PO SCH ×2 (08:25→20:15)
[2018-10-03] MEDS ORDERED: Bisacodyl 5 MG Tab PO ONE (09:00)
[2018-10-03] MEDS: diphenhydrAMINE 50 MG/ML SDV IVPUSH PRN (14:40)
[2018-10-03] MEDS: Cyclobenzaprine 10 MG Tab PO PRN (20:14)
[2018-10-03] MEDS: Pantoprazole 40 MG Vial IVPUSH SCH (20:16)
[2018-10-04] MEDS: diphenhydrAMINE 50 MG/ML SDV IVPUSH PRN (00:12)
[2018-10-04] MEDS: Acetaminophen 500 MG Tab PO SCH ×2 (01:13→08:10)
[2018-10-04] MEDS: oxyCODONE 5 MG Tab PO PRN ×2 (01:13→05:55)
[2018-10-04] MEDS: Heparin Sodium 5,000 Units/ML Vial SUBCUT SCH (08:09)
--- NOTE | 2018-10-04 16:12 | DISCH ---
ADMISSION DIAGNOSES: 1. Abdominal pain. 2. Status post Catina-en-Y gastric bypass surgery. 3. Unspecified surgical malabsorption B12 deficiency. 4. Vitamin B1 deficiency. 5. Vitamin D deficiency. 6. Chronic back pain. DISCHARGE DIAGNOSES: 1. Exploratory laparotomy with lysis of adhesions. a. Reduction of small bowel volvulus and closure of internal hernia. b. Small-bowel resection. c. Placement of Interceed mesh. d. Appendectomy. 2. Postoperative diagnoses. a. Partial small bowel obstruction secondary to volvulus. b. 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 3. Extensive intraabdominal adhesions. 4. Distended, inflamed appendix. DATE OF SURGERY: 09/30/2018. Surgeon, Jv Nava MD. HISTORY: Angelica Almazan is a pleasant 32-year-old female who presented to the emergency room with abdominal pain. After preoperative evaluation and discussion of possible risks and possible complications, she wished to proceed with surgical procedure. HOSPITAL COURSE: Angelica had her surgery on 09/30/2018. She had no operative complications. On postoperative day #1, she was started on step 3 gastric bypass diet, Colace 100 mg p.o. b.i.d., IV decreased to 100 mL per hour, and Tylenol was increased to 1 g every 6 hours. She continued on the COKE WORKER. On postop day 2, she continued same treatment. Pain was continued to be managed with the COKE WORKER. On postop day 2, vital signs were stable. She was not passing any flatus. Oral intake was 600. COKE WORKER was discontinued. She was started on oxycodone for pain along with Tylenol and Zofran was switched to ODT. On 10/03/2018, she had not had a bowel movement yet. She was given milk of magnesia followed by Dulcolax 2 tabs and encouraged to increase liquids and ambulate. On 10/04/2018, she had a bowel movement. Vital signs were stable. Oral intake adequate and she was able to be discharged to home. She did have dietary counseling and physical therapy. PHYSICAL EXAMINATION: GENERAL: Angelica Almazan is a pleasant 32-year-old female. VITAL SIGNS: Height is 5 feet 8.11 inches, weight is 164 pounds. TPR 97.4, 79, 18, blood pressure is 114/64. HEENT: Negative. NECK: Supple. HEART: Regular rate and rhythm. LUNGS: Clear. ABDOMEN: Valentine intact. Aquacel dressing removed. Abdominal binder is on. EXTREMITIES: Without peripheral edema. DISPOSITION: Discharged to home. CONDITION: Stable and improving. FOLLOWUP: Followup appointment with Jannette Vazquez PA-C, on 10/13/2018 at 10:30 a.m. at [facility]. MEDICATIONS: Oxycodone 5 mg every 4 hours p.r.n. pain #42. Continues to take Tylenol 1000 mg q.6 hours. She is to resume home medication of zolpidem tartrate 5 mg at bedtime p.r.n. sleep, Flexeril 10 mg 3 times daily p.r.n. muscle spasms, and to resume all her recommended vitamins. Recommend no gummy vitamins. DIET: Step 3 gastric bypass diet. ACTIVITY: No lifting greater than 10 pounds for 6 weeks. Other activity, walk 6 times daily. Driving, do not drive for 1 week and while on oxycodone. Shower/bathing, may shower. No tub bathing, swimming for 6 weeks. DISCHARGE INSTRUCTIONS: Notify provider if any fever, increased pain, nausea, or vomiting. Keep site clean and dry. Wear abdominal binder for 6 weeks and then as needed. Use incentive spirometer 10 times every hour while awake.
--- NOTE | 2018-10-06 07:56 | DISCH ---
ADDENDUM: Angelica presented to the hospital with a ferritin of 5. She did receive 2 doses of IV iron gluconate, to have her post-iron infusion labs in 2 months, which would be around December 31, 2018. Other labs; B12 of 1095, folate 24.4. All labs will be rechecked at her postop appointment.
--- NOTE | 2018-10-06 12:41 | OR ---
DATE OF PROCEDURE: 09/30/2018 PREOPERATIVE DIAGNOSIS: Partial small bowel obstruction. POSTOPERATIVE DIAGNOSES: 1. Partial small bowel obstruction secondary to volvulus and stricture at jejunojejunostomy. 2. Extensive intraabdominal adhesions. 3. Distended and mildly inflamed appendix. OPERATIVE PROCEDURES: Exploratory laparotomy with lysis of adhesions and, 1. Reduction of small bowel volvulus with closure of internal hernia (19520). 2. Small bowel resection (44208). 3. Appendectomy (88236). 4. Placement of Interceed mesh to limit recurrent adhesion formation between the pelvic and abdominal wall, and underlying viscera (30606). ANESTHESIA: General. INDICATION FOR PROCEDURE: This is a 32-year-old who presented this morning to the emergency room with developing severe abdominal pain overnight. CT scan was obtained, which showed some stranding around the appendix. Clinical picture was not overly suggestive of that. On further examination of the CT scan, there does appear to be some mesenteric swirling, and her clinical picture is more suggestive of a partial small bowel obstruction likely related to some degree of small bowel volvulus. The plan is to proceed with a limited laparotomy and correction of any small bowel abnormalities that are noted, including possible small bowel resection. We will look at the appendix and unless that appears to be entirely normal, we would proceed with an appendectomy given the CT findings suggesting of at least a possible early appendicitis. Potential risks of the procedure including bleeding, infection, injury to underlying viscera, leaks from various GI tract closures, and problems with recurrence of the situation overtime were reviewed with the patient, and she wishes to proceed. DETAILS OF PROCEDURE: The patient was taken to the operating room and after general endotracheal anesthesia was induced, a Lovett catheter was inserted. The latter was removed at the end of the procedure. The abdomen was prepped and draped. A midline incision from the umbilicus roughly a handsbreadth's toward the xiphoid was made and carried down through the full-thickness of the abdominal wall. Upon entering the peritoneal cavity, the patient was noted to have some thin ascitic fluid consistent with some mesenteric and small bowel edema. There was some slight duskiness to much of the small bowel suggestive of a degree of venous hypertension. Inspection did reveal a small bowel volvulus with the area of the jejunojejunostomy having rotated underneath the mesenteric defect from a [id number] direction. This was reduced and the small bowel at that point became well perfused with loss of the duskiness. The patient did have what appeared to be a stricture at the point where the biliopancreatic limb entered the Catina limb. That area was then detached from the jejunojejunostomy. The remaining course of the small bowel, where the Catina limb had entered into the common limb was not significantly narrowed after division of that, the small bowel at the end of the biliopancreatic limb was resected and a new jejunojejunostomy was created roughly 20 cm further distally along the length of small with internal firing of the Endo- SUSY 60 mm stapler. The common opening was closed transversely with the same stapler. Angles of anastomosis were reinforced with some 3-0 Vicryl stitch, and the mesenteric defect with a 2-0 silk stitch. The original division of the small bowel and the resection was also accomplished with the series of SUSY staplers. The appendix was then examined. The patient did have an appendicolith located roughly a third of the way above the length of the appendix from the appendiceal base and some slight bogginess to the appendix distally. This may have been related to mesenteric venous hypertension, but given the CT findings, the appendectomy was completed. The mesoappendix was from the base of the appendix adjacent to the cecum and divided with a mesenteric SUSY load and then appendix then divided off flush with the cecum with a SUSY solorzano load. The staple line was turned in with a seromuscular [id number] stitch with 3-0 Vicryl stitch as well. At this point, no further problems were noted. The abdomen was irrigated with antibiotic-containing saline solution. Bilateral transversus abdominis plane blocks were placed, and the patient's omentum was found to be not adequately mobile to bring down to underneath the incision and toward the pelvis. Given this, an Interceed mesh was placed down toward the pelvis and up against the abdominal wall, including the incision. The midline fascia was then approximated with #2 Vicryl stitch, the subcutaneous tissue with 2 layers of 3-0 Vicryl stitch, and then the skin with shannon. Dressing was applied. The patient was taken to the recovery room in a satisfactory condition. There were no evident complications. Jv Nava MD /[id number]
--- NOTE | 2018-10-06 15:07 | PN ---
DATE OF SERVICE: 10/01/2018 The patient has been afebrile with stable vital signs. Still having a fair bit of abdominal discomfort. Her upper GI looked satisfacotry and will be beginning step 3 diet today, back down the IV rate, and she will be receiving the first 2 doses of ferric gluconate today. I think we will move the Tylenol dose up to 1 g q.6 hours scheduled, to maximize her pain control in that regard, and otherwise maximize activity and work with pulmonary toilet. She can get a shower today if she wishes. Jv Nava MD /[id number]
== END 2018-10-04 08:40 | disposition home or self-care (01) | DRG 221 ==
LOC: JP.ED 07:45 → JP.SDS 12:14 → JP.ICU 15:30 → JP.MS 10-02 16:37
PROVIDERS: ADMIT Surgery; ATTEND Surgery
PROC: 0DB80ZZ Excision of Small Intestine, Open Approach (ICD-10-PCS; principal; 2018-09-30)
PROC: 0DTJ0ZZ Resection of Appendix, Open Approach (ICD-10-PCS; 2018-09-30)
PROC: 3E0M05Z Introduction of Adhesion Barrier into Peritoneal Cavity, Open Approach (ICD-10-PCS; 2018-09-30)
DX: K56.2 Volvulus (principal); K94.13 Enterostomy malfunction; G89.29 Other chronic pain; M54.9 Dorsalgia, unspecified; F32.9 Major depressive disorder, single episode, unspecified; F41.9 Anxiety disorder, unspecified; E51.9 Thiamine deficiency, unspecified; E55.9 Vitamin D deficiency, unspecified; E61.1 Iron deficiency; Z88.5 Allergy status to narcotic agent; Z91.040 Latex allergy status; Z88.8 Allergy status to other drugs, medicaments and biological substances; Z79.899 Other long term (current) drug therapy; Z98.84 Bariatric surgery status
CPT/HCPCS: 36415; 74177; 74240; 80053; 81001; 82607; 82728; 82746; 83690; 85025; 86140; 88304; 88307; 96361; 96365; 96375; 96376; 99284-25; A9270-GY; C9113; J0171; J0330; J0694; J1100; J1200; J1644; J2001; J2185; J2270; J2405; J2704; J2710; J2765; J2795; J2916; J3010; J3410; J3411; J3420; J3490; J7030; J7042; J7050; Q9967

== ENCOUNTER 2019-07-13 23:05 | Emergency (ER) | payer BC ==
[2019-07-13] MEDS ORDERED: Bupivacaine 0.5%/EPINEPHrine 1:200,000 1.8 ML Cartridge INJECT ONE (23:23)
--- NOTE | 2019-07-13 23:28 | EDM.PDOC ---
ED HPI GENERAL MEDICAL PROBLEM - General Chief Complaint: General Stated Complaint: TOOTH PAIN Time Seen by Provider: 07/13/19 23:15 Source of Information: Reports: Patient, Old Records, RN History Limitations: Reports: No Limitations - History of Present Illness INITIAL COMMENTS - FREE TEXT/NARRATIVE: 33 yo female broke a decayed tooth off earlier today and is not tolerating the pain. No facial swelling or fever. Onset: Today Onset Date: 07/13/19 Duration: Hour(s): Location: Reports: Face (L maxilla) Quality: Reports: Sharp Severity: Severe Improves with: Reports: None Worsens with: Reports: None Context: Reports: Other (See HPI) Associated Symptoms: Reports: No Other Symptoms Treatments SURVEY OPERATIONS DIRECTOR: Reports: Acetaminophen - Related Data Allergies Allergy/AdvReac Type Severity Reaction Status Date / Time codeine Allergy Chest Verified 07/29/18 08:16 Tightness hydromorphone HCl Allergy Chest Verified 07/29/18 08:16 [From Dilaudid] Tightness latex Allergy Rash Verified 07/29/18 08:16 nifedipine [From Procardia] Allergy Chest Verified 07/29/18 08:16 Presssure bupropion [From Wellbutrin] AdvReac Vomiting Verified 10/02/18 08:12 ketorolac [From Toradol] AdvReac Stomach Verified 07/29/18 08:30 Upset Home Meds: Home Meds Calcium Carbonate [Calcium] 500 mg PO DAILY 04/20/13 [History] Vitamin B Complex 1 each PO DAILY 04/20/13 [History] Zolpidem Tartrate 5 mg PO ASDIRECTED 06/19/18 [History] Cyclobenzaprine [Flexeril] 10 mg PO TID PRN #30 tab 07/29/18 [Rx] Hydrocodone/Acetaminophen [Hydrocodon-Acetaminophen 5-325] 1 each PO TID PRN # 10 tablet 07/29/18 [Rx] oxyCODONE 5 mg PO Q4H PRN #42 tablet 10/03/18 [Rx] Acetaminophen/HYDROcodone [[place] 325-5 MG] 1 tab PO Q4H PRN #10 tab 07/13/19 [Rx ] Penicillin V Potassium 500 mg PO Q8HR #30 tab 07/13/19 [Rx] Past Medical History Gastrointestinal History: Reports: Other (See Below) Other Gastrointestinal History: R sided abd pain for past 24 hours 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: Musculoskeletal History: Reports: Back Pain, Chronic Other Musculoskeletal History: back fusion Psychiatric History: Reports: Anxiety, Depression - Past Surgical History GI Surgical History: Reports: Bariatric Procedure Neurological Surgical History: Reports: Spinal Fusion Other Neurological Surgeries/Procedures: L-5-s-1 Social & Family History - Family History Family Medical History: Noncontributory - Caffeine Use Caffeine Use: Reports: Coffee ED ROS GENERAL - Review of Systems Review Of Systems: See Below Constitutional: Reports: No Symptoms HEENT: Reports: Dental Pain Cardiovascular: Reports: No Symptoms GI/Abdominal: Reports: No Symptoms Skin: Reports: No Symptoms ED EXAM, GENERAL - Physical Exam Exam: See Below Exam Limited By: No Limitations General Appearance: Alert, WD/WN, Mild Distress Eye Exam: Bilateral Eye: EOMI, PERRL Ears: Normal External Exam, Normal Canal, Hearing Grossly Normal, Normal TMs Ear Exam: Bilateral Ear: Auricle Normal, Canal Normal Nose: Normal Inspection, No Blood Throat/Mouth: Normal Inspection, Normal Lips, Normal Oropharynx, Normal Voice, No Airway Compromise, Other (L maxillary premolar is broken off exposing a considerable amt of underlying decay.). No: Normal Teeth Head: Atraumatic, Normocephalic Neck: Normal Inspection Course - Vital Signs Text/Narrative:: local block with 1.8 ml of 0.5% bupivacaine with epi. Last Recorded V/S: Last Vital Signs Temp 36.2 C 07/13/19 23:16 Pulse 117 H 07/13/19 23:16 Resp 16 07/13/19 23:16 BP 159/97 H 07/13/19 23:16 Pulse Ox 98 07/13/19 23:16 - Orders/Labs/Meds Meds: Medications Discontinued Medications Generic Name Dose Route Start Last Admin Trade Name Freq PRN Reason Stop Dose Admin Bupivacaine HCl/Epinephrine Bitart 1.8 ml 07/13/19 23:23 Marcaine 0.5%/Epinephrine 1:200,000 INJECT 07/13/19 23:24 ONETIME ONE Departure - Departure Time of Disposition: 23:55 Disposition: Home, Self-Care 01 Condition: Fair Clinical Impression: Pain, dental, Dental decay - Discharge Information *PRESCRIPTION DRUG MONITORING PROGRAM REVIEWED*: No *COPY OF PRESCRIPTION DRUG MONITORING REPORT IN PATIENT DEE: No Prescriptions: Penicillin V Potassium 500 mg PO Q8HR #30 tab Acetaminophen/HYDROcodone [[place] 325-5 MG] 1 tab PO Q4H PRN #10 tab PRN Reason: Pain Referrals: Zoila Mendes MD [Primary Care Provider] - Forms: ED Department Discharge Additional Instructions: Take penicillin every 6-8 hrs. Take ibuprofen 400-600 mg every 6 hrs as needed for pain relief. Add either acetaminophen OR [place] for added relief. See your dentist for recheck dionicio. If you can't get into see your dentist, then follow up with your doctor. Sepsis Event Note - Focused Exam Vital Signs: Vital Signs Temp Pulse Resp BP Pulse Ox 07/13/19 23:16 36.2 C 117 H 16 159/97 H 98 Date Exam was Performed: 07/13/19 Time Exam was Performed: 23:48
== END 2019-07-14 00:11 | disposition home or self-care (01) ==
LOC: JP.ED 23:05
DX: K02.9 Dental caries, unspecified (principal); Z88.5 Allergy status to narcotic agent; Z91.040 Latex allergy status; Z88.6 Allergy status to analgesic agent
CPT/HCPCS: 64400; 99282; J3490

== ENCOUNTER 2019-08-21 21:55 | Emergency (ER) | payer BC ==
[2019-08-21] MEDS ORDERED: Ondansetron 4 MG Tab.DIS PO ONE (22:51)
[2019-08-21] MEDS ORDERED: Ketorolac 30 MG/ML SDV IVPUSH ONE (22:58)
--- NOTE | 2019-08-21 23:07 | EDM.PDOC ---
ED HPI GENERAL MEDICAL PROBLEM - General Chief Complaint: Abdominal Pain Stated Complaint: ABD PAIN Time Seen by Provider: 08/21/19 22:50 Source of Information: Reports: Patient, Old Records, RN History Limitations: Reports: No Limitations - History of Present Illness INITIAL COMMENTS - FREE TEXT/NARRATIVE: 33 yo female with a pHx of gastric bypass presents with left lateral abdominal pain for about 3 days that is getting worse. She has associated nausea. Pain waxes and wanes. Her stools are loose, but no blood is present. No fever. She has never had colonoscopy and does not know of a FHx of diverticular dz. No urinary sx's. Dr. Nava performed her gastric bypass. Had a negative preg test before coming to the ER today. Onset: Gradual Onset Date: 08/18/19 Duration: Day(s):, Getting Worse Location: Reports: Abdomen Quality: Reports: Other (cramping) Severity: Moderate Improves with: Reports: None Worsens with: Reports: Movement Context: Reports: Other (See HPI) Associated Symptoms: Reports: Loss of Appetite, Nausea/Vomiting. Denies: Fever/Chills Treatments CHILD NUTRITION DIRECTOR: Reports: Other (see below) (none) middle abd pain Pain Score (Numeric/FACES): 8 - Related Data Allergies Allergy/AdvReac Type Severity Reaction Status Date / Time codeine Allergy Chest Verified 08/21/19 22:42 Tightness hydromorphone HCl Allergy Chest Verified 08/21/19 22:42 [From Dilaudid] Tightness latex Allergy Rash Verified 08/21/19 22:42 nifedipine [From Procardia] Allergy Chest Verified 08/21/19 22:42 Presssure bupropion [From Wellbutrin] AdvReac Vomiting Verified 08/21/19 22:42 ketorolac [From Toradol] AdvReac Stomach Verified 08/21/19 22:42 Upset Home Meds: Home Meds Calcium Carbonate [Calcium] 500 mg PO DAILY 04/20/13 [History] Vitamin B Complex 1 each PO DAILY 04/20/13 [History] Citalopram [Citalopram HBr] 20 mg PO DAILY 07/13/19 [History] Eszopiclone 3 mg PO BEDTIME 07/13/19 [History] Omeprazole 20 mg PO DAILY 07/13/19 [History] Cholecalciferol (Vitamin D3) [Vitamin D3] 1 tab PO DAILY 08/21/19 [History] Cyanocobalamin (Vitamin B-12) [Vitamin B-12] 1 tab PO DAILY 08/21/19 [History] Ferrous Sulfate [Iron] 1 tab PO DAILY 08/21/19 [History] Multivitamin [Multivitamins] 1 tab PO DAILY 08/21/19 [History] Past Medical History Gastrointestinal History: Reports: Other (See Below) Other Gastrointestinal History: R sided abd pain for past 24 hours 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: Musculoskeletal History: Reports: Back Pain, Chronic Other Musculoskeletal History: back fusion Psychiatric History: Reports: Anxiety, Depression Hematologic History: Reports: Anemia - Past Surgical History HEENT Surgical History: Reports: Tonsillectomy GI Surgical History: Reports: Appendectomy, Bariatric Procedure, Ita cystectomy, Colon Neurological Surgical History: Reports: Spinal Fusion Other Neurological Surgeries/Procedures: L-5-s-1 Social & Family History - Family History Family Medical History: Noncontributory - Tobacco Use Smoking Status *Q: Current Some Day Smoker Years of Tobacco use: 9 Packs/Tins Daily: 0 Tobacco Use Comment: uses socially "once a month" - Caffeine Use Caffeine Use: Reports: Coffee - Recreational Drug Use Recreational Drug Use: No ED ROS GENERAL - Review of Systems Review Of Systems: See Below Constitutional: Reports: No Symptoms HEENT: Reports: No Symptoms Respiratory: Reports: No Symptoms Cardiovascular: Reports: No Symptoms GI/Abdominal: Reports: Abdominal Pain, Anorexia, Diarrhea, Nausea. Denies: Black Stool, Bloody Stool, Constipation, Distension, Hematemesis, Hematochezia, Melena, Vomiting : Reports: No Symptoms Musculoskeletal: Reports: No Symptoms Skin: Reports: No Symptoms ED EXAM, GI/ABD - Physical Exam Exam: See Below Exam Limited By: No Limitations General Appearance: Alert, WD/WN, No Apparent Distress Eyes: Bilateral: Normal Appearance Ears: Normal External Exam, Hearing Grossly Normal, Normal TMs Nose: Normal Inspection, No Blood Throat/Mouth: Normal Inspection, Normal Lips, Normal Oropharynx, Normal Voice, No Airway Compromise Head: Atraumatic, Normocephalic Neck: Normal Inspection Respiratory/Chest: No Respiratory Distress, Lungs Clear, Normal Breath Sounds, No Accessory Muscle Use Cardiovascular: Regular Rate, Rhythm GI/Abdominal Exam: Soft, Rebound, Tender (Left lateral abdomen), Abnormal Bowel Sounds (increased). No: Normal Bowel Sounds, Non-Tender, No Distention, Distended, Guarding, Rigid Back Exam: Normal Inspection. No: CVA Tenderness (R), CVA Tenderness (L) Extremities: Normal Inspection, Normal Range of Motion, Non-Tender, No Pedal Edema Neurological: Alert, Oriented, CN II-XII Intact, Normal Cognition, No Motor/Sensory Deficits Psychiatric: Normal Affect, Normal Mood Skin Exam: Warm, Dry, Intact, Normal Color, No Rash Course - Vital Signs Last Recorded V/S: Last Vital Signs Temp 36.7 C 08/21/19 22:42 Pulse 96 08/21/19 23:56 Resp 14 08/21/19 23:56 BP 145/88 H 08/21/19 23:56 Pulse Ox 96 08/21/19 23:56 - Orders/Labs/Meds Orders: Active Orders 24 hr Category Date Time Status Iopamidol [Isovue-300 (61%)] Med 08/21/19 23:45 Active 116 ml IV . DIRECTED Sodium Chloride 0.9% [Normal Saline] 80 ml Med 08/21/19 23:45 Active IV ASDIRECTED Sodium Chloride 0.9% [Saline Flush] Med 08/21/19 22:52 Active 10 ml FLUSH ASDIRECTED PRN Saline Lock Insert [OM.PC] Routine Oth 08/21/19 22:52 Ordered Medication Orders Sodium Chloride (Normal Saline) 80 mls @ 3 mls/sec IV ASDIRECTED [facility] Last Admin: 08/22/19 00:03 Dose: 3 mls/sec Documented by: WILMER Iopamidol (Isovue-300 (61%)) 116 ml IV . DIRECTED [facility] Last Admin: 08/22/19 00:03 Dose: 116 ml Documented by: WILMER Sodium Chloride (Saline Flush) 10 ml FLUSH ASDIRECTED PRN PRN Reason: Keep Vein Open Last Admin: 08/22/19 00:03 Dose: 10 ml Documented by: Admin: 08/21/19 23:09 Dose: 10 ml Documented by: MARQUEZ Labs: Laboratory Tests 08/21/19 08/21/19 08/21/19 Range/Units 22:51 23:05 23:05 WBC 7.8 (4.5-11.0) K/uL RBC 4.11 (3.30-5.50) M/uL Hgb 12.3 (12.0-15.0) g/dL Hct 38.3 (36.0-48.0) % MCV 93 (80-98) fL MCH 30 (27-31) pg MCHC 32 (32-36) % Plt Count 295 (150-400) K/uL Sodium 141 (140-148) mmol/L Potassium 4.2 (3.6-5.2) mmol/L Chloride 106 (100-108) mmol/L Carbon Dioxide 27 (21-32) mmol/L Anion Gap 7.7 (5.0-14.0) mmol/L BUN 17 (7-18) mg/dL Creatinine 0.9 (0.6-1.0) mg/dL Est Cr Clr Drug Dosing 89.69 mL/min Estimated GFR (MDRD) > 60 (>60) Glucose 113 H (74-106) mg/dL Calcium 8.4 L (8.5-10.1) mg/dL Total Bilirubin 0.3 (0.2-1.0) mg/dL AST 18 (15-37) U/L ALT 32 (12-78) U/L Alkaline Phosphatase 70 (46-116) U/L C-Reactive Protein (0.0-0.3) mg/dL Total Protein 6.3 L (6.4-8.2) g/dL Albumin 3.5 (3.4-5.0) g/dL Globulin 2.8 (2.3-3.5) g/dL Albumin/Globulin Ratio 1.2 (1.2-2.2) Lipase (73-393) U/L Urine Color Yellow (YELLOW) Urine Appearance Slightly cloudy A (CLEAR) Urine pH 6.5 (5.0-8.0) Ur Specific [place] 1.025 (1.008-1.030) Urine Protein Negative (NEGATIVE) mg/dL Urine Glucose (UA) Negative (NEGATIVE) mg/dL Urine Ketones Negative (NEGATIVE) mg/dL Urine Occult Blood Trace-intact H (NEGATIVE) Urine Nitrite Negative (NEGATIVE) Urine Bilirubin Negative (NEGATIVE) Urine Urobilinogen 0.2 (0.2-1.0) EU/dL Ur Leukocyte Esterase Negative (NEGATIVE) Urine RBC 0-5 (0-5) Urine WBC 0-5 (0-5) Ur Epithelial Cells Few Amorphous Sediment Not seen Urine Bacteria Moderate Urine Mucus Not seen 08/21/19 08/21/19 Range/Units 23:05 23:05 WBC (4.5-11.0) K/uL RBC (3.30-5.50) M/uL Hgb (12.0-15.0) g/dL Hct (36.0-48.0) % MCV (80-98) fL MCH (27-31) pg MCHC (32-36) % Plt Count (150-400) K/uL Sodium (140-148) mmol/L Potassium (3.6-5.2) mmol/L Chloride (100-108) mmol/L Carbon Dioxide (21-32) mmol/L Anion Gap (5.0-14.0) mmol/L BUN (7-18) mg/dL Creatinine (0.6-1.0) mg/dL Est Cr Clr Drug Dosing mL/min Estimated GFR (MDRD) (>60) Glucose (74-106) mg/dL Calcium (8.5-10.1) mg/dL Total Bilirubin (0.2-1.0) mg/dL AST (15-37) U/L ALT (12-78) U/L Alkaline Phosphatase (46-116) U/L C-Reactive Protein 0.05 (0.0-0.3) mg/dL Total Protein (6.4-8.2) g/dL Albumin (3.4-5.0) g/dL Globulin (2.3-3.5) g/dL Albumin/Globulin Ratio (1.2-2.2) Lipase 91 (73-393) U/L Urine Color (YELLOW) Urine Appearance (CLEAR) Urine pH (5.0-8.0) Ur Specific [place] (1.008-1.030) Urine Protein (NEGATIVE) mg/dL Urine Glucose (UA) (NEGATIVE) mg/dL Urine Ketones (NEGATIVE) mg/dL Urine Occult Blood (NEGATIVE) Urine Nitrite (NEGATIVE) Urine Bilirubin (NEGATIVE) Urine Urobilinogen (0.2-1.0) EU/dL Ur Leukocyte Esterase (NEGATIVE) Urine RBC (0-5) Urine WBC (0-5) Ur Epithelial Cells Amorphous Sediment Urine Bacteria Urine Mucus Meds: Medications Generic Name Dose Route Start Last Admin Trade Name Freq PRN Reason Stop Dose Admin Sodium Chloride 80 mls @ 3 mls/sec 08/21/19 23:45 08/22/19 00:03 Normal Saline IV 3 mls/sec ASDIRECTED ISABELA Administration Iopamidol 116 ml 08/21/19 23:45 08/22/19 00:03 Isovue-300 (61%) IV 116 ml . DIRECTED ISABELA Administration Sodium Chloride 10 ml 08/21/19 22:52 08/22/19 00:03 Saline Flush FLUSH 10 ml ASDIRECTED PRN Administration Keep Vein Open Discontinued Medications Generic Name Dose Route Start Last Admin Trade Name Freq PRN Reason Stop Dose Admin Al Hydroxide/Mg Hydroxide 30 ml 08/21/19 23:24 08/21/19 23:37 Mag-Al Plus PO 08/21/19 23:25 30 ml ONETIME ONE Administration Fentanyl 100 mcg 08/21/19 23:46 08/21/19 23:54 Sublimaze IVPUSH 08/21/19 23:47 100 mcg ONETIME ONE Administration Ketorolac Tromethamine 15 mg 08/21/19 22:58 08/21/19 23:09 Toradol IVPUSH 08/21/19 22:59 15 mg ONETIME ONE Administration Ondansetron HCl 4 mg 08/21/19 22:51 08/21/19 23:09 Zofran Odt PO 08/21/19 22:52 4 mg ONETIME ONE Administration - Radiology Interpretation Free Text/Narrative:: CT abd/pelvis with IV contrast-IMPRESSION: 1. Mild gaseous distention colon is present to the level of rectosigmoid. Dictated by Indra Frazier MD @ 08/22/2019 12:22:[address] Results Date: 08/21/19 CT Results Time: 00:25 Departure - Departure Time of Disposition: 00:35 Disposition: Home, Self-Care 01 Condition: Fair Clinical Impression: Viral gastroenteritis - Discharge Information *PRESCRIPTION DRUG MONITORING PROGRAM REVIEWED*: No *COPY OF PRESCRIPTION DRUG MONITORING REPORT IN PATIENT DEE: No Referrals: Zoila Mendes MD [Primary Care Provider] - Forms: ED Department Discharge Additional Instructions: Acetaminophen 1000 mg every 6 hrs as needed for pain relief. Zofran as needed for nausea control. Simethicone per package instructions for gas reduction. Clear liquid diet with advancement of diet as tolerated. Recheck with your family doctor or Dr. Nava early next week if symptoms persist. Return if worse. Sepsis Event Note (ED) - Evaluation Sepsis Screening Result: No Definite Risk - Focused Exam Vital Signs: Vital Signs Temp Pulse Resp BP Pulse Ox 08/21/19 23:56 96 14 145/88 H 96 08/21/19 22:50 104 H 18 123/79 97 08/21/19 22:42 36.7 C 102 H 16 132/77 99 08/21/19 22:23 36.7 C 102 H 16 132/77 99 - My Orders Last 24 Hours: My Active Orders 08/21/19 22:52 Sodium Chloride 0.9% [Saline Flush] 10 ml FLUSH ASDIRECTED PRN Saline Lock Insert [OM.PC] Routine 08/21/19 23:45 Iopamidol [Isovue-300 (61%)] 116 ml IV . DIRECTED Sodium Chloride 0.9% [Normal Saline] 80 ml IV ASDIRECTED - Assessment/Plan Last 24 Hours: My Active Orders 08/21/19 22:52 Sodium Chloride 0.9% [Saline Flush] 10 ml FLUSH ASDIRECTED PRN Saline Lock Insert [OM.PC] Routine 08/21/19 23:45 Iopamidol [Isovue-300 (61%)] 116 ml IV . DIRECTED Sodium Chloride 0.9% [Normal Saline] 80 ml IV ASDIRECTED
[2019-08-21] MEDS: Sodium Chloride 0.9% 10 ML Syringe FLUSH PRN (23:09)
[2019-08-21] MEDS ORDERED: Aluminum Hydroxide/Magnesium Hydroxide/Simethicone Susp 30 ML Cup PO ONE (23:24)
[2019-08-21] MEDS ORDERED: Sodium Chloride 0.9% 80 ML IV SCH (23:45)
[2019-08-21] MEDS ORDERED: Iopamidol 612 MG/ML 150 ML Bottle IV SCH (23:45)
[2019-08-21] MEDS ORDERED: fentaNYL 100 MCG/2 ML SDV IVPUSH ONE (23:46)
[2019-08-22] MEDS: Sodium Chloride 0.9% 10 ML Syringe FLUSH PRN (00:03)
--- NOTE | 2019-08-22 00:24 | CRLCT ---
INDICATION: Left sided abdominal pain, history gastric bypass TECHNIQUE: CT Abdomen and pelvis with i.v. contrast. Coronal and sagittal reformats were obtained. CONTRAST: 116 mL Isovue 300 COMPARISON: 09/30/2018 FINDINGS: Lower chest: Unremarkable. Liver: Unremarkable. Spleen: Unremarkable. Pancreas: Unremarkable. Gallbladder: Previous cholecystectomy noted without significant intra- or extrahepatic biliary ductal dilatation seen. Kidney: Unremarkable. No kidney or ureteral stones or obstruction seen. Adrenal: Unremarkable. Bowel: Mild gaseous distention colon is present to the level of rectosigmoid. Previous antegastric-antecolic gastric bypass noted with no definite obstruction of the biliopancreatic limb or [place]-en-Y loop seen. The appendix is not seen may be surgically absent. Vascular: Unremarkable. Lymph: Unremarkable. Peritoneum: Unremarkable. No pneumoperitoneum is seen. No significant ascites is noted. Pelvis: Unremarkable. Soft tissue: Unremarkable. Bone: Anterior spinal fusion of L5-S1 is noted without interval change. IMPRESSION: 1. Mild gaseous distention colon is present to the level of rectosigmoid. Dictated by Indra Frazier MD @ 08/22/2019 12:22:02 AM Please note that all CT scans at this facility use dose modulation, iterative reconstruction, and/or weight-based dosing when appropriate to reduce radiation dose to as low as reasonably achievable. Dictated by: Indra Frazier MD @ 08/22/2019 00:22:15 (Electronically Signed)
[2019-08-22] MEDS ORDERED: Simethicone 80 MG Tab.Chew PO ONE (00:25)
== END 2019-08-22 00:38 | disposition home or self-care (01) ==
LOC: JP.ED 21:55
DX: A08.4 Viral intestinal infection, unspecified (principal); F41.9 Anxiety disorder, unspecified; F32.9 Major depressive disorder, single episode, unspecified; F17.210 Nicotine dependence, cigarettes, uncomplicated; Z88.5 Allergy status to narcotic agent; Z91.040 Latex allergy status; Z88.6 Allergy status to analgesic agent; Z88.8 Allergy status to other drugs, medicaments and biological substances; Z79.899 Other long term (current) drug therapy
CPT/HCPCS: 36415; 74177; 80053; 81001; 83690; 85027; 86140; 96374; 96375; 99284; A9270; J1885; J3010; J7050; Q9967